=== PATIENT | female | born 1975 | race Caucasian/White ===

== ENCOUNTER 2019-01-30 05:48 | Day surgery (SDC) | payer BC ==
[2019-01-30 06:42] LABS: ADD MAN DIFF? NO
[2019-01-30 06:55] LABS: BASOPHILS % 0.8 % (0.0-2.0); EOSINOPHILS # 0.1 10^3/ul (0.0-0.5); HEMATOCRIT 40.7 % (37.0-47.0); HEMOGLOBIN 12.7 g/dl (12.0-16.0); LYMPHOCYTES # 1.5 10^3/ul (0.8-2.9); LYMPHOCYTES % 42.1 % (15.0-51.0); MEAN CORPUSCULAR HEMOGLOBIN 26.6 pg (29.0-33.0); MEAN CORPUSCULAR HGB CONC 31.2 g/dl (32.0-37.0); MEAN CORPUSCULAR VOLUME 85.1 fl (82.0-101.0); MEAN PLATELET VOLUME 10.8 fl (7.4-10.4); MONOCYTE # 0.4 10^3/ul (0.3-0.9); MONOCYTES % 12.1 % (0.0-11.0); NEUTROPHIL # 1.5 10^3/ul (1.6-7.5); NEUTROPHILS % 41.4 % (39.0-77.0); PLATELET COUNT 221 10^3/UL (140-415); RED BLOOD COUNT 4.78 10^6/ul (4.20-5.40); RED CELL DISTRIBUTION WIDTH 12.8 % (11.5-14.5)
[2019-01-30 06:55] LABS: WHITE BLOOD COUNT 3.6 10^3/ul (4.8-10.8)
[2019-01-30] MEDS ORDERED: NEOSTIGMINE 3 MG/3 ML SYRINGE (07:20)
[2019-01-30] MEDS ORDERED: LIDOCAINE 2% (SDV) 5 ML INJ (07:20)
[2019-01-30] MEDS ORDERED: ROCURONIUM 50 MG INJ (07:20)
[2019-01-30] MEDS ORDERED: CEFAZOLIN 1 GM INJ (07:20)
[2019-01-30] MEDS ORDERED: SUCCINYLCHOLINE CHLORIDE 100 MG/5 ML SYG IV (07:20)
[2019-01-30] MEDS ORDERED: PROPOFOL 200 MG INJ (07:20)
[2019-01-30] MEDS ORDERED: GLYCOPYRROLATE 0.4 MG INJ (07:20)
[2019-01-30 07:21] LABS: ALANINE AMINOTRANSFERASE 24 IU/L (13-69); ALBUMIN 4.4 g/dl (3.3-4.9); ALBUMIN/GLOBULIN RATIO 1.46; ALKALINE PHOSPHATASE 40 IU/L (42-121); ANION GAP 8 (5-13); ASPARTATE AMINO TRANSFERASE 20 IU/L (15-46); BILIRUBIN,INDIRECT 0.5 mg/dl (0-1.1); BILIRUBIN,TOTAL 0.5 mg/dl (0.2-1.3); BLOOD UREA NITROGEN 11 mg/dl (7-20); CALCIUM 9.7 mg/dl (8.4-10.2); CARBON DIOXIDE 28 mmol/L (21-31); CHLORIDE 103 mmol/L (97-110); CREATININE 0.59 mg/dl (0.44-1.00); Estimated GFR > 60 mL/min (>60); GLUCOSE 105 mg/dl (70-220); POTASSIUM 4.9 mmol/L (3.5-5.1); SODIUM 139 mmol/L (135-144); TOTAL PROTEIN 7.4 g/dl (6.1-8.1)
[2019-01-30 07:23] LABS: INR 0.93; PARTIAL THROMBOPLASTIN TIME 26.7 Sec (23.0-35.0); PROTIME 12.6 Sec (11.9-14.9)
[2019-01-30] MEDS ORDERED: ONDANSETRON 4 MG INJ (07:24)
[2019-01-30] MEDS ORDERED: DEXAMETHASONE 4 MG/ML 5 ML INJ (07:24)
[2019-01-30] MEDS ORDERED: MIDAZOLAM 1 MG/ML 2 ML INJ (07:24)
[2019-01-30] MEDS ORDERED: FENTAnyl 50 MCG/ML VIAL (07:24)
[2019-01-30] MEDS ORDERED: FAMOTIDINE 20 MG INJ (07:25)
[2019-01-30] MEDS ORDERED: OXYCODONE/ACETAMINOPHEN (5/325) TAB PO ×2 (08:00)
[2019-01-30] MEDS ORDERED: FENTAnyl 50 MCG/ML VIAL IV (08:00)
[2019-01-30] MEDS ORDERED: HALOPERIDOL 5 MG INJ IV (08:00)
[2019-01-30] MEDS ORDERED: HYDROCODONE/APAP (5/325) TAB PO (09:00)
[2019-01-30] MEDS ORDERED: ONDANSETRON 4 MG INJ IV (09:00)
[2019-01-30] MEDS: MEPERIDINE 25 MG INJ IV (09:04)
[2019-01-30] MEDS: ONDANSETRON 4 MG INJ IV (09:05)
[2019-01-30] MEDS: HYDROmorphONE 1 MG/5 ML IV SYRINGE IV ×3 (09:15→09:38)
[2019-01-30] MEDS: FENTAnyl 50 MCG/ML VIAL IV (09:46)
== END 2019-01-30 10:40 | disposition home or self-care (01) ==
LOC: SDS 05:48
DX: N20.0 Calculus of kidney (principal)
CPT/HCPCS: 50590; 71045; 80053; 85025; 85610; 85730; 87086; 93005